=== PATIENT | female | born 1980 | race Hispanic/Latino ===

== ENCOUNTER 2021-11-07 07:35 | Outpatient (CLI) | payer OTHER | END 2021-11-07 07:36 | disposition home or self-care (01) | LOC: BICULT 07:35 | PROVIDERS: ATTEND Physician Assistant | DX: R79.89 Other specified abnormal findings of blood chemistry (principal); K80.20 Calculus of gallbladder without cholecystitis without obstruction | CPT/HCPCS: 76705 ==